=== PATIENT | male | born 1990 | race American Indian/Alaskan Native ===

== ENCOUNTER 2019-05-23 10:12 | Emergency (ER) | payer OTHER ==
[2019-05-23 10:27] VITALS: BP 112/62
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
== END 2019-05-23 15:55 | disposition home or self-care (01) ==
LOC: ED 10:12
DX: S16.1XXA Strain of muscle, fascia and tendon at neck level, initial encounter (principal); M54.5 Low back pain; M25.561 Pain in right knee; Z90.49 Acquired absence of other specified parts of digestive tract; V89.2XXA Person injured in unspecified motor-vehicle accident, traffic, initial encounter; Y93.89 Activity, other specified; Y92.488 Other paved roadways as the place of occurrence of the external cause; Y99.8 Other external cause status
CPT/HCPCS: 72040; 72100; 99283